=== PATIENT | male | born 1970 | race Hispanic/Latino ===

== ENCOUNTER 2019-05-22 08:40 | Outpatient (RCR) | payer OTHER ==
--- NOTE | 2019-05-22 14:13 | NUR ---
Patient Name: Zacarias Jackson: 1970 Age/Sex: 49 [facility] Physician: Duran Clinical Swallow Evaluation/Initial Treatment Session Patient is a 49 year old male with diagnosis of dysphagia and choking. Pt reported several month h/o coughing and choking mostly on his own saliva, though it does happen with foods and liquids. Pt reported he is embarrassed when he gets coughing fits, which happens at least 1-2 times per week. Pt reported he is currently being treated for reflux in his throat, and agreed to having symptoms including frequent throat clearing, changes in vocal quality, globus sensation, waking up at night coughing, and increase mucous production. Pt denied any recent PNA, URI, or bronchitis. Pt reported ACDF 09/10. Patient completed a modified barium swallow (MBS) study on 04/03/2019. Pt presented with mild pharyngeal dysphagia c/b consistent premature spillage to the level of the vallecular, intermittent deep penetration into the laryngeal vestibule, one episode of trace aspiration of thin liquids, and consistent pharygneal residue after the swallow. Dysphagia was judged to be secondary decreased hyolaryngeal excursion, decreased pharyngeal constriction, and decreased coordination of the swallow. Recommendation was made for dysphagia therapy to increase strength and coordination of swallow. Patient was seen today in the outpatient clinic for initial treatment of Neuromuscular Electrical Stimulation (NMES) with VitalStim Therapy and traditional dysphagia therapy with pharyngeal exercises. Pt was seen with no family present. Oral motor exam revealed function that was grossly within normal limits. Patient tolerates room air. Hearing appeared to be WFL. Speech and language skills were functional. Provided extensive education re: need for therapy, purpose of exercises and NMES, and future plan of care. Pt indicated understanding. Pt was given water and hard candy. Pt was instructed to take small sips and swallow hard, feeling all the muscles in her throat contract. Placement 3b was used to target the mylohyoid muscle, the anterior belly of the digastric muscle, the sternohyoid muscle, the omohyoid muscle, the geniohyoid muscle, and the middle pharyngeal constrictors. Channel 1 of the electrodes was aligned horizontally just above the hyoid bone and channel 2 of the electrodes was aligned horizontally at the level of the thyroid notch. This placement was used to improve base of tongue strength, pharyngeal constriction, and UES function. Pt initially tolerated 7.0 mA, but as the session progressed pt tolerated 18.0 mA. Pt received 55 minutes of stimulation. Cough noted X 0, throat clear X 1. During NMES an exercise program was presented, demonstrated, and discussed. Pt completed the exercises with minimal assistance. A home program was assigned. Pt verbalized understanding of the home exercise program. Education provided as indicated. All questions were answered. Pt indicated that attending therapy 2x/week would be convenient Impressions: Pt tolerated initial session of NMES well. He continues to report and demonstrate s/s of aspiration during meals which significantly interferes with his quality of life. Pt is an excellent candidate for dysphagia exercises and NMES for improvement of strength and coordination of swallow. Recommendations: 1.Dysphagia therapy to include traditional exercises and NMES 3X/week for 4 weeks for a total of 12 treatment sessions 2.Home exercise program 3.Repeat MBS in 4-6 weeks with new goals to be determined at that time Group Home Goal: Pt will tolerate least restrictive diet without s/s of aspiration as judged by an objective evaluation. Short Term Goals: 1.Pt will complete 3 repetitions of a set of dysphagia exercises to improve laryngeal elevation, base of tongue retraction, and laryngeal closure, 10 repetitions per exercise, with minimal cues. 2.Pt will tolerate NMES for 45 60 minutes with no clinical s/s of aspiration to improve strength of pharyngeal constrictors, hyolaryngeal excursion, and safety with po intake. 3.Pt will complete home dysphagia exercise program targeting laryngeal elevation, base of tongue strength, and cricopharyngeal function independently. 4.Pt will follow aspiration precautions with independence. 5.Pt will participate in a repeat Modified Barium Swallow study to objectively re-assess swallow safety and function and determine safest diet. Haleigh Stacy M.S. CCC-DIRECTOR OPERATIONS Date of Session: 05/22/19 Dysphagia Evaluation and Treatment X 60 minutes Physicians signature below certifies medical necessity for these skilled interventions Physician SignatureDate NOMS Rating for Swallowing: Level 5
== END 2019-05-23 ==
LOC: ST 08:40
PROVIDERS: ATTEND Otolaryngology
DX: R13.10 Dysphagia, unspecified (principal); R09.89 Other specified symptoms and signs involving the circulatory and respiratory systems

== ENCOUNTER 2019-05-26 11:41 | Outpatient (RCR) | payer OTHER ==
--- NOTE | 2019-05-29 11:37 | NUR ---
ST NOTE: Pt cx apt, had to take to MD. Will rescheduled missed apt at next session
--- NOTE | 2019-06-09 10:00 | NUR ---
ST Note: Called and spoke with pt, who reported he cannot continue to attend therapy at this time. Pt to call back when his scheduled is more accommodating.
== END 2019-06-23 ==
LOC: ST 11:41
PROVIDERS: ATTEND Otolaryngology
DX: R13.13 Dysphagia, pharyngeal phase (principal); R09.89 Other specified symptoms and signs involving the circulatory and respiratory systems